=== PATIENT | female | born 1970 | race African-American/Black ===

== ENCOUNTER 2019-12-25 20:56 | Emergency (ER) | payer SELFPAY ==
[~2019-12-25] VITALS: Ht 167.6 cm; Wt 68.0 kg
[2019-12-25 22:30] VITALS: BP 135/73
[2019-12-25 23:18] LABS: HEMATOCRIT. 27.9 % (36.0-48.0); HEMOGLOBIN. 8.8 g/dL (12.0-16.0); MEAN CORPUSCULAR HEMOGLOBIN 21.1 pg (28.0-32.0); MEAN CORPUSCULAR VOLUME 66.8 fL (81.0-99.0); MEAN PLATELET VOLUME 8.6 fl (7.4-10.4); PLATELET 389 x1000/uL (130-400); RED BLOOD CELL COUNT 4.17 mill/uL (4.2-5.4); RED CELL DISTRIBUTION WIDTH 23.4 % (11.6-14.6)
[2019-12-25 23:20] LABS: CLARITY URINE CLEAR (CLEAR); COLOR URINE YELLOW (YELLOW); KETONES URINE NEGATIVE (NEGATIVE); LEUKOCYTE ESTERASE URINE 1+ (NEGATIVE); NITRITE URINE NEGATIVE (NEGATIVE); OCCULT BLOOD URINE 2+ (NEGATIVE); PH URINE 5.5 (4.5-8.0); PROTEIN URINE NEGATIVE (NEGATIVE); UROBILINOGEN URINE 0.2 E.U./dL (0.2-1.0)
[2019-12-25 23:21] LABS: CHLORIDE 108 mEq/L (98-107)
[2019-12-25 23:28] LABS: *AMPHETAMINES SCREEN URINE NEGATIVE (NEGATIVE); *BARBITURATES SCREEN URINE NEGATIVE (NEGATIVE); *BENZODIAZEPINES SCREEN URINE NEGATIVE (NEGATIVE); *COCAINE SCREEN URINE NEGATIVE (NEGATIVE)
[2019-12-25 23:28] LABS: BETA HYDROXYBUTYRATE 0.1 mMol/L (0.0-0.3)
[2019-12-25 23:29] LABS: METHADONE URINE SCREEN NEGATIVE (NEGATIVE); OPIATES URINE SCREEN NEGATIVE (NEGATIVE); PHENCYCLIDINE URINE SCREEN NEGATIVE (NEGATIVE)
[2019-12-25 23:45] LABS: CANNABINOID URINE SCREEN PRESUMTIVE POSITIVE (NEGATIVE)
[2019-12-26 03:35] LABS: PLATELET ESTIMATE NORMAL
== END 2019-12-26 05:05 | disposition left against medical advice (07) ==
LOC: ER 20:56
DX: F29 Unspecified psychosis not due to a substance or known physiological condition (principal); F22 Delusional disorders; E11.9 Type 2 diabetes mellitus without complications; I10 Essential (primary) hypertension; Z98.51 Tubal ligation status; Z88.0 Allergy status to penicillin
CPT/HCPCS: 36415; 80053; 80305; 80307; 80329; 81003; 82010; 82962; 85025; 86850; 86900; 99283

== ENCOUNTER 2020-02-12 01:01 | Emergency (ER) | payer SELFPAY ==
[~2020-02-12] VITALS: Ht 167.6 cm; Wt 68.0 kg
[2020-02-12] MEDS ORDERED: HYDROCODONE/ACETAMINOPHEN 5/325MG TABLET PO ONE (01:30)
[2020-02-12 01:33] VITALS: BP 151/97
== END 2020-02-12 02:05 | disposition home or self-care (01) ==
LOC: ER 01:01 → 5WST 08:45 → UNDOADMIN 08:45
DX: K08.89 Other specified disorders of teeth and supporting structures (principal); I10 Essential (primary) hypertension; E11.9 Type 2 diabetes mellitus without complications
CPT/HCPCS: 99283

== ENCOUNTER 2020-02-20 05:11 | Emergency (ER) | payer SELFPAY ==
[~2020-02-20] VITALS: Ht 167.6 cm; Wt 69.0 kg
[2020-02-20 06:33] LABS: CLARITY URINE CLEAR (CLEAR); COLOR URINE YELLOW (YELLOW); KETONES URINE NEGATIVE (NEGATIVE); LEUKOCYTE ESTERASE URINE NEGATIVE (NEGATIVE); NITRITE URINE NEGATIVE (NEGATIVE); OCCULT BLOOD URINE NEGATIVE (NEGATIVE); PROTEIN URINE NEGATIVE (NEGATIVE); SPECIFIC GRAVITY URINE 1.007 (1.005-1.030); UROBILINOGEN URINE 0.2 E.U./dL (0.2-1.0)
[2020-02-20 06:46] LABS: *BARBITURATES SCREEN URINE NEGATIVE (NEGATIVE)
[2020-02-20 06:47] LABS: *AMPHETAMINES SCREEN URINE NEGATIVE (NEGATIVE); *BENZODIAZEPINES SCREEN URINE NEGATIVE (NEGATIVE); *COCAINE SCREEN URINE NEGATIVE (NEGATIVE); METHADONE URINE SCREEN NEGATIVE (NEGATIVE); OPIATES URINE SCREEN NEGATIVE (NEGATIVE); PHENCYCLIDINE URINE SCREEN NEGATIVE (NEGATIVE)
[2020-02-20 06:48] LABS: CANNABINOID URINE SCREEN NEGATIVE (NEGATIVE)
[2020-02-20] MEDS ORDERED: CLONIDINE 0.1MG TABLET PO ONE (07:30)
[2020-02-20] MEDS ORDERED: AZITHROMYCIN 500 MG TABLET PO ONE (07:30)
[2020-02-20 09:45] VITALS: BP 130/70
== END 2020-02-20 10:00 | disposition home or self-care (01) ==
LOC: ER 05:11
DX: R10.2 Pelvic and perineal pain (principal); E11.9 Type 2 diabetes mellitus without complications; I10 Essential (primary) hypertension; Z88.0 Allergy status to penicillin
CPT/HCPCS: 76856; 80305; 81003; 81025; 87210; 93005; 99285

== ENCOUNTER 2020-02-28 02:48 | Emergency (ER) | payer SELFPAY ==
[~2020-02-28] VITALS: Ht 167.6 cm; Wt 68.0 kg
[2020-02-28 02:59] VITALS: BP 155/83
[2020-02-28] MEDS ORDERED: ACETAMINOPHEN 500MG TABLET PO ONE (04:30)
== END 2020-02-28 04:50 | disposition home or self-care (01) ==
LOC: ER 02:48
DX: G89.29 Other chronic pain (principal); R10.9 Unspecified abdominal pain; I10 Essential (primary) hypertension; E11.9 Type 2 diabetes mellitus without complications; Z98.51 Tubal ligation status; Z88.0 Allergy status to penicillin
CPT/HCPCS: 93005; 99283

== ENCOUNTER 2020-02-29 22:48 | Emergency (ER) | payer SELFPAY ==
[~2020-02-29] VITALS: Ht 167.6 cm; Wt 69.0 kg
[2020-02-29 23:05] VITALS: BP 205/99
== END 2020-03-01 01:04 | disposition home or self-care (01) ==
LOC: ER 22:48
DX: G89.29 Other chronic pain (principal); R10.9 Unspecified abdominal pain; R07.89 Other chest pain; I10 Essential (primary) hypertension; E11.9 Type 2 diabetes mellitus without complications; Z59.0 Homelessness
CPT/HCPCS: 93005; 99283

== ENCOUNTER 2020-05-17 21:22 | Emergency (ER) | payer SELFPAY ==
[~2020-05-17] VITALS: Ht 167.6 cm; Wt 68.0 kg
[2020-05-18 00:01] VITALS: BP 161/94
== END 2020-05-18 00:03 | disposition home or self-care (01) ==
LOC: ER 21:22
DX: R06.02 Shortness of breath (principal); E11.9 Type 2 diabetes mellitus without complications; I10 Essential (primary) hypertension; Z88.0 Allergy status to penicillin
CPT/HCPCS: 99281

== ENCOUNTER 2020-09-05 01:35 | Emergency (ER) | payer MEDICAID ==
[~2020-09-05] VITALS: Ht 167.6 cm; Wt 70.0 kg
[2020-09-05 01:37] VITALS: BP 104/73
[2020-09-05] MEDS ORDERED: ACETAMINOPHEN 325MG TABLET PO STA (03:23)
[2020-09-05] MEDS: ONDANSETRON 4MG ODT PO ONE (03:30)
[2020-09-05] MEDS ORDERED: ONDA4TAB5 PO (03:37)
[2020-09-05] MEDS ORDERED: ACET-2708 MT (03:37)
[2020-09-05 03:43] LABS: HEMATOCRIT. 28.1 % (36.0-48.0); HEMOGLOBIN. 8.7 g/dL (12.0-16.0); MEAN CORPUSCULAR HEMOGLOBIN 20.5 pg (28.0-32.0); MEAN CORPUSCULAR VOLUME 66.1 fL (81.0-99.0); MEAN PLATELET VOLUME 8.3 fl (7.4-10.4); PLATELET 398 x1000/uL (130-400); RED BLOOD CELL COUNT 4.25 mill/uL (4.2-5.4); RED CELL DISTRIBUTION WIDTH 27.8 % (11.6-14.6)
[2020-09-05 04:22] LABS: CHLORIDE 105 mEq/L (98-107)
[2020-09-05 05:04] LABS: ATYPICAL LYMPHOCYTES 1; PLATELET ESTIMATE NORMAL
[2020-09-05 05:43] LABS: CLARITY URINE CLEAR (CLEAR); COLOR URINE YELLOW (YELLOW); KETONES URINE NEGATIVE (NEGATIVE); LEUKOCYTE ESTERASE URINE NEGATIVE (NEGATIVE); NITRITE URINE NEGATIVE (NEGATIVE); OCCULT BLOOD URINE NEGATIVE (NEGATIVE); PROTEIN URINE NEGATIVE (NEGATIVE); SPECIFIC GRAVITY URINE 1.006 (1.005-1.030); UROBILINOGEN URINE 0.2 E.U./dL (0.2-1.0)
== END 2020-09-05 05:55 | disposition home or self-care (01) ==
LOC: ER 01:35
DX: K29.00 Acute gastritis without bleeding (principal); Z88.0 Allergy status to penicillin
CPT/HCPCS: 36415; 80053; 81003; 85025; 99283

== ENCOUNTER 2020-10-30 01:29 | Emergency (ER) | payer MEDICAID ==
[~2020-10-30] VITALS: Ht 172.7 cm; Wt 71.4 kg
[~2020-10-30 01:29] MED LIST: ACET-2708 MT; ONDA4TAB5 PO
[2020-10-30 03:14] VITALS: BP 143/79
[2020-10-30 04:00] LABS: CLARITY URINE CLEAR (CLEAR); COLOR URINE YELLOW (YELLOW); KETONES URINE NEGATIVE (NEGATIVE); LEUKOCYTE ESTERASE URINE NEGATIVE (NEGATIVE); NITRITE URINE NEGATIVE (NEGATIVE); OCCULT BLOOD URINE NEGATIVE (NEGATIVE); PROTEIN URINE NEGATIVE (NEGATIVE); SPECIFIC GRAVITY URINE 1.015 (1.005-1.030)
[2020-10-30] MEDS ORDERED: CEFTRIAXONE SODIUM 500 MG/VIAL IM ONE (04:30)
[2020-10-30] MEDS ORDERED: DOXY100C2 MT (04:36)
[2020-10-30] MEDS ORDERED: LIDOCAINE HCL 1% 20ML VIAL (Pyxis) INJ INFIL ONE (05:00)
== END 2020-10-30 05:32 | disposition home or self-care (01) ==
LOC: ER 01:29
DX: Z20.2 Contact with and (suspected) exposure to infections with a predominantly sexual mode of transmission (principal); E11.9 Type 2 diabetes mellitus without complications; I10 Essential (primary) hypertension
CPT/HCPCS: 81003; 96372; 99283; J0696; J3490

== ENCOUNTER 2021-04-17 23:10 | Emergency (ER) | payer MEDICAID, OTHER ==
[~2021-04-17] VITALS: Ht 167.6 cm; Wt 63.0 kg
[~2021-04-17 23:10] MED LIST changes: +DOXY100C5 MT
[2021-04-18] MEDS ORDERED: SODIUM CHLORIDE 0.9% 1,000 ML IV ONE ×2 (05:00→05:30)
[2021-04-18 05:11] LABS: CLARITY URINE CLEAR (CLEAR); COLOR URINE YELLOW (YELLOW); KETONES URINE NEGATIVE (NEGATIVE); LEUKOCYTE ESTERASE URINE NEGATIVE (NEGATIVE); NITRITE URINE NEGATIVE (NEGATIVE); OCCULT BLOOD URINE NEGATIVE (NEGATIVE); PROTEIN URINE NEGATIVE (NEGATIVE); UROBILINOGEN URINE 0.2 E.U./dL (0.2-1.0)
[2021-04-18] MEDS ORDERED: ONDANSETRON HCL 4MG/2ML INJ IV STA (05:26)
[2021-04-18] MEDS ORDERED: KETOROLAC 30MG/ML VIAL IV STA (05:26)
[2021-04-18 05:41] LABS: BASOPHILS % 0.3 % (0.0-2.0); EOSINOPHILS % 3.5 % (0.0-5.0); HEMATOCRIT. 33.8 % (36.0-48.0); HEMOGLOBIN. 10.7 g/dL (12.0-16.0); LYMPHOCYTES % 37.5 % (20.0-50.0); MEAN CORPUSCULAR HEMOGLOBIN 23.8 pg (28.0-32.0); MEAN CORPUSCULAR VOLUME 75.1 fL (81.0-99.0); MEAN PLATELET VOLUME 8.4 fl (7.4-10.4); MONOCYTES % 7.9 % (2.0-8.0); NEUTROPHILS % 50.8 % (40.0-76.0); PLATELET 337 x1000/uL (130-400); RED BLOOD CELL COUNT 4.51 mill/uL (4.2-5.4); RED CELL DISTRIBUTION WIDTH 20.1 % (11.6-14.6)
[2021-04-18 05:42] VITALS: BP 155/90
[2021-04-18 05:50] LABS: CHLORIDE 109 mEq/L (98-107)
[2021-04-18 05:53] LABS: PROTHROMBIN TIME 10.6 sec (9.6-11.0)
[2021-04-18] MEDS ORDERED: TOPUD PO (06:49)
== END 2021-04-18 07:13 | disposition home or self-care (01) ==
LOC: ER 23:10
DX: R10.30 Lower abdominal pain, unspecified (principal); R19.7 Diarrhea, unspecified; D64.9 Anemia, unspecified; I10 Essential (primary) hypertension; E11.9 Type 2 diabetes mellitus without complications
CPT/HCPCS: 36415; 80053; 81003; 83690; 85025; 85610; 96374; 96375; 99284; J1885; J2405; J7030

== ENCOUNTER 2021-11-30 01:25 | Emergency (ER) | payer SELFPAY ==
[~2021-11-30] VITALS: Ht 170.2 cm; Wt 69.5 kg
[~2021-11-30 01:25] MED LIST changes: +TOPUD PO
[2021-11-30 01:31] VITALS: BP 160/88
== END 2021-11-30 02:14 | disposition home or self-care (01) ==
LOC: ER 01:25
DX: Z78.0 Asymptomatic menopausal state (principal); Z53.29 Procedure and treatment not carried out because of patient's decision for other reasons; E11.9 Type 2 diabetes mellitus without complications; I10 Essential (primary) hypertension; Z88.0 Allergy status to penicillin; Z98.51 Tubal ligation status
CPT/HCPCS: 99281

== ENCOUNTER 2021-12-03 07:01 | Emergency (ER) | payer SELFPAY ==
[~2021-12-03] VITALS: Ht 170.2 cm; Wt 68.0 kg
[2021-12-03 07:25] VITALS: BP 168/88
== END 2021-12-03 09:08 | disposition home or self-care (01) ==
LOC: ER 07:18
DX: K12.0 Recurrent oral aphthae (principal); E11.9 Type 2 diabetes mellitus without complications; Z98.51 Tubal ligation status; Z98.890 Other specified postprocedural states; Z88.0 Allergy status to penicillin
CPT/HCPCS: 99281